=== PATIENT | female | born 1990 | race Caucasian/White ===

== ENCOUNTER 2021-02-17 16:06 | Emergency (ER) | payer OTHER ==
[~2021-02-17] VITALS: Ht 182.9 cm; Wt 81.8 kg
[2021-02-17 16:13] VITALS: BP 129/79
== END 2021-02-17 16:43 | disposition left against medical advice (07) ==
LOC: M ED 16:06
DX: Z53.21 Procedure and treatment not carried out due to patient leaving prior to being seen by health care provider (principal)

== ENCOUNTER 2021-02-26 21:23 | Emergency (ER) | payer OTHER ==
[~2021-02-26] VITALS: Ht 182.9 cm; Wt 80.7 kg
[2021-02-26 21:35] VITALS: BP 126/65
== END 2021-02-26 23:04 | disposition left against medical advice (07) ==
LOC: EDSEX 21:23 → M ED 21:23
DX: Z63.0 Problems in relationship with spouse or partner (principal); F41.9 Anxiety disorder, unspecified; F17.200 Nicotine dependence, unspecified, uncomplicated; F12.10 Cannabis abuse, uncomplicated; Z88.8 Allergy status to other drugs, medicaments and biological substances; Z88.6 Allergy status to analgesic agent; Z53.20 Procedure and treatment not carried out because of patient's decision for unspecified reasons

== ENCOUNTER 2021-07-25 14:17 | Emergency (ER) | payer OTHER ==
[~2021-07-25] VITALS: Ht 182.9 cm; Wt 81.8 kg
--- OUTSIDE RECORDS SUMMARY | 2021-07-25 14:24 | CCD ---
Author Author [facility] Organization [facility] Address Unknown Phone Unavailable Support Name Relationship Address Phone UN Next Of Kin Unknown Unavailable JAGDEEP RHODES Next Of Kin [address] [place] [address] JAGDEEP HUNTER Next Of Kin [address] [place] [address] VICTOR[place] [address] UE Next Of Kin Unknown Unavailable CHASITY [place] [address] Re-disclosure Warning The records that you are about to access may contain information from federally-assisted alcohol or drug abuse programs. If such information is present, then the following federally mandated warning applies: This information has been disclosed to you from records protected by federal confidentiality rules (42 CFR part 2). The federal rules prohibit you from making any further disclosure of this information unless further disclosure is expressly permitted by the written consent of the person to whom it pertains or as otherwise permitted by 42 CFR part 2. A general authorization for the release of medical or other information is NOT sufficient for this purpose. The Federal rules restrict any use of the information to criminally investigate or prosecute any alcohol or drug abuse patient.The records that you are about to access may contain highly sensitive health information, the redisclosure of which is protected by Article 27-F of the [facility] Public Health law. If you continue you may have access to information: Regarding HIV / AIDS; Provided by facilities licensed or operated by the [facility] Office of Mental Health; or Provided by the [facility] Office for People With Developmental Disabilities. If such information is present, then the following [facility] mandated warning applies: This information has been disclosed to you from confidential records which are protected by state law. State law prohibits you from making any further disclosure of this information without the specific written consent of the person to whom it pertains, or as otherwise permitted by law. Any unauthorized further disclosure in violation of state law may result in a fine or chcf sentence or both. A general authorization for the release of medical or other information is NOT sufficient authorization for further disc losure. Encounters Encounter Providers Location Date Indications Data Source(s ) Outpatient 02/17/2021 03:43:49 PM EDT [facility] ([facility]) Medications No Information Insurance Providers Payer name Policy type / Coverage type Policy ID Covered libertarian ID Covered libertarian's relationship to [place] Policy [place] Plan Information BENJAMIN [id number] SP [id number] SELF PAY ONLY [id number] SP [id number] BENJAMIN [id number] SP [id number] MEDICAID M [id number] S [id number] EMEDNY [id number] SP [id number] MEDICAID [id number] SP [id number] Problems, Conditions, and Diagnoses No Information Surgeries/Procedures No Information Results No Information Social History No Information
--- OUTSIDE RECORDS SUMMARY | 2021-07-25 15:17 | CCD ---
Author Author [facility] Organization [facility] Address Unknown Phone Unavailable Support Name Relationship Address Phone UN Next Of Kin Unknown Unavailable JAGDEEP RHODES Next Of Kin [address] [place] [address] JAGDEEP HUNTER Next Of Kin [address] [place] [address] VICTORINO [place] [address] UE Next Of Kin Unknown Unavailable CHASITY [place] [address] Re-disclosure Warning The records that you are [...] is protected by Article 27-F of the [facility] Public Health law. If you continue you may have access to information: Regarding HIV / AIDS; Provided by facilities licensed or operated by the [facility] Office of Mental Health; or Provided by the [facility] Office for People With Developmental Disabilities. If such information is present, then the following [facility] mandated warning applies: This information has been [...] law may result in a fine or shelter sentence or both. A general authorization for the release of medical or other information is NOT sufficient authorization for further disc losure. Encounters Encounter Providers Location Date Indications Data Source(s ) Outpatient 02/17/2021 03:43:49 PM EDT [facility] ([facility]) Medications No Information Insurance Providers Payer name Policy type / Coverage type Policy ID Covered alliance party ID Covered alliance party's relationship to [place] Policy [place] Plan Information BENJAMIN [id number] SP [id number] SELF PAY ONLY [id number] SP [id number] BENJAMIN [id number] SP [id number] MEDICAID M [id number] S [id number] EMEDNY [id number] SP [id number] MEDICAID [id number] SP [id number] Problems, Conditions, and Diagnoses No Information Surgeries/Procedures No Information Results No Information Social History No Information
[2021-07-25] MEDS ORDERED: BACT800T5 PO (15:43)
[2021-07-25 15:52] VITALS: BP 116/76
== END 2021-07-25 15:54 | disposition home or self-care (01) ==
LOC: M ED 14:17
DX: S30.861A Insect bite (nonvenomous) of abdominal wall, initial encounter (principal); S00.96XA Insect bite (nonvenomous) of unspecified part of head, initial encounter; S40.861A Insect bite (nonvenomous) of right upper arm, initial encounter; S40.862A Insect bite (nonvenomous) of left upper arm, initial encounter; W57.XXXA Bitten or stung by nonvenomous insect and other nonvenomous arthropods, initial encounter; F12.10 Cannabis abuse, uncomplicated; F17.200 Nicotine dependence, unspecified, uncomplicated; Y92.9 Unspecified place or not applicable; Y93.9 Activity, unspecified; Y99.9 Unspecified external cause status

== ENCOUNTER 2021-08-01 14:55 | Inpatient (IN) | payer OTHER ==
[~2021-08-01] VITALS: Ht 182.9 cm; Wt 78.0 kg
[~2021-08-01 14:55] MED LIST: BACT800T5 PO
--- OUTSIDE RECORDS SUMMARY | 2021-08-01 15:00 | CCD ---
Author Author [facility] Organization [facility] Address Unknown Phone Unavailable Care Team Providers Care Bundler Name Role Phone NO, PCP Unavailable Unavailable Annette JENSEN MD Unavailable Unavailable Annette JENSEN MD Unavailable Unavailable Annette JENSEN MD Unavailable Unavailable Annette JENSEN MD Unavailable Unavailable Annette JENSEN MD Unavailable Unavailable Annette JENSEN MD Unavailable Unavailable Annette JENSEN MD Unavailable Unavailable Annette JENSEN MD Unavailable Unavailable Annette JENSEN MD Unavailable Unavailable Annette JENSEN MD Unavailable Unavailable Annette JENSEN MD Unavailable Unavailable Annette JENSEN MD Unavailable Unavailable Annette JENSEN MD Unavailable Unavailable Annette JENSEN MD Unavailable Unavailable Annette JENSEN MD Unavailable Unavailable Annette JENSEN MD Unavailable Unavailable Annette JENSEN MD Unavailable Unavailable Annette JENSEN MD Unavailable Unavailable Annette JENSEN MD Unavailable Unavailable Annette JENSEN MD Unavailable Unavailable Annette JENSEN MD Unavailable Unavailable Annette JENSEN MD Unavailable Unavailable Annette JENSEN MD Unavailable Unavailable JENSEN, M RONY MD Unavailable Unavailable JENSEN, M RONY MD Unavailable Unavailable JENSEN, M RONY MD Unavailable Unavailable JENSEN, M RONY MD Unavailable Unavailable JENSEN, M RONY MD Unavailable Unavailable JENSEN, M RONY MD Unavailable Unavailable JENSEN, M RONY MD Unavailable Unavailable JENSEN, M RONY MD Unavailable Unavailable JENSEN, M RONY MD Unavailable Unavailable JENSEN, M RONY MD Unavailable Unavailable JENSEN, M RONY MD Unavailable Unavailable JENSEN, M RONY MD Unavailable Unavailable JENSEN, M RONY MD Unavailable Unavailable JENSEN, M RONY MD Unavailable Unavailable JENSEN, M RONY MD Unavailable Unavailable JENSEN, M RONY MD Unavailable Unavailable JENSEN, M RONY MD Unavailable Unavailable JENSEN, M RONY MD Unavailable Unavailable JENSEN, M RONY MD Unavailable Unavailable JENSEN, M RONY MD Unavailable Unavailable JENSEN, M RONY MD Unavailable Unavailable JENSEN, M RONY MD Unavailable Unavailable JENSEN, M RONY MD Unavailable Unavailable JENSEN, M RONY MD Unavailable Unavailable JENSEN, M RONY MD Unavailable Unavailable JENSEN, M RONY MD Unavailable Unavailable JENSEN, M RONY MD Unavailable Unavailable CHANLIECCO, C DOC MD Unavailable Unavailable CHANLIECCO, C DOC MD Unavailable Unavailable CHANLIECCO, C DOC MD Unavailable Unavailable CHANLIECCO, C DOC MD Unavailable Unavailable CHANLIECCO, C DOC MD Unavailable Unavailable CHANLIECCO, C DOC MD Unavailable Unavailable CHANLIECCO, C DOC MD Unavailable Unavailable CHANLIECCO, C DOC MD Unavailable Unavailable CHANLIECCO, C DOC MD Unavailable Unavailable CHANLIECCO, C DOC MD Unavailable Unavailable CHANLIECCO, C DOC MD Unavailable Unavailable Re-disclosure Warning The records that you are [...] is protected by Article 27-F of the [facility] Public Health law. If you continue you may have access to information: Regarding HIV / AIDS; Provided by facilities licensed or operated by the [facility] Office of Mental Health; or Provided by the [facility] Office for People With Developmental Disabilities. If such information is present, then the following [facility] mandated warning applies: This information has [...] law may result in a fine or mcfp sentence or both. A general authorization for the release of medical or other information is NOT sufficient authorization for further disc losure. Allergies and Adverse Reactions Type Description Substance Reaction Status Data Source(s ) No Known Drug Allergies No Known Drug Allergies [facility] Encounters Encounter Providers Location Date Indications Data Source(s ) Emergency Attender: DOC Macedo MDConsultant: RONY JENSEN MDConsultant: PCP NO 08/01/2021 08:01:00 AM EST - 08/01/2021 01:55:[address] [facility] Patient discharged. Outpatient 02/17/2021 03:43:49 PM EDT [facility] ([facility]) Medications Medication Brand Name Start Date Product Form Dose Route Admi nistrative Instructions Pharmacy Instructions Status Indications Reaction Description Data Source(s) 800-160 mg 07/25/2021 12:00:00 AM EST tablet 20 TAKE ONE TABLET BY MOUTH EVERY 12 HOURS TAKE ONE TABLET BY MOUTH EVERY 12 HOURS SOLD: 07/27/2021 [facility] Insurance Providers Payer name Policy type / Coverage type Policy ID Covered republican ID Covered republican's relationship to [place] Policy [place] Plan Information BENJAMIN [id number] SP [id number] 500 BENJAMIN [facility] [id number] 18 [id number] SELF PAY ONLY [id number] SP [id number] BENJAMIN [id number] SP [id number] MEDICAID M [id number] S [id number] EMEDNY [id number] SP [id number] MEDICAID [id number] SP [id number] Problems, Conditions, and Diagnoses No Information Surgeries/Procedures No Information Results ID Date Data Source [id number] 08/01/2021 12:16:[address] [facility] [address] [place] [address] PHONE: [phone] FAX: [phone] Name .................. : CARMELO Uriarte Acct Number.................. : [id number] ROOM. ................. : TR-07 Number ................... : [id number] Stay type ............. : E/R Discharge Date......... ... : Admit Date ......... : 08/01/21 Admit Phys .................... : [facility] Date of ....... : 1990 Family Phys ................... : JENSEN PAU Phone .................. : [phone] Age ................................ : 31 Film# .................. .:[id number] Sex ................................. : M Unsigned transcriptions are preliminary reports and do not represent a medical or legal document CHEST PORTABLE [id number] COMPLETE:08/01/21 08:30 13067 Elsa son(s): psych clearance PORTABLE CHEST SINGLE VIEW OBTAINED AT 9:17 AM HISTORY: Psych clearance, cold exposure COMPARISON: None. FINDINGS: Mediastinal and hilar structures are normal. Cardiac silhouette is unremarkable. Lungs are clear. No pulmonary edema. No pleural effusions or pneumothorax. IMPRESSION: No acute disease. Electronically Reviewed and Signed By Steven Ramey MD , 08/01/21 12:16, JWNesha Transcribe Initials: DEN , Transcribe Date: 08/01/21 09:44, Dictation Date: Copy for: 010 EMERGENCY SRV Copy for: EMERGENCY DEPT via modem Copy for: 710 MED REC Page 1 of 1 Name Value Range Interpretation Code Description Data Pily rce(s) Supporting Document(s) ID Date Data Source [id number] 08/01/2021 12:04:[address] [facility] NOT DETECTEDNOT DETECTED{ PROC EDURAL CONTROL VALID KIT LOT # _[id number] 08/01/21.1204.TAD. . . KIT EXP DATE _02.12.22 08/01/21.1204.TAD. . . NORMAL RANGE IS NOT DETECTEDThe COVID-19 assay is a rapid molecular in vitro diagnostic testutilizing an isothermal nucleic acid amplification technology for thequalitative detection of nucleic acid from the SARS-CoV-2 viral RNA in directnasal or nasopharyngeal swabs. Testing should be performed within the first 7days of the onset of symptoms.NEGATIVE RESULTS SHOULD BE TREATED PRESUMPTIVE AND, IF INCONSISTENT WITHCLINICAL SIGNS AND SYMPTOMS OR NECESSARY FOR PATIENT MANAGEMENT, SHOULD BETESTED WITH DIFFERENT AUTHORIZED OR CLEARED MOLECULAR TESTS. NEGATIVE RESULTSDO NOT PRECLUDE SARS-CoV-2 INFECTION AND SHOULD NOT BE USED THE SOLE BASISFOR PATIENT MANAGEMENT DECISIONS. Name Value Range Interpretation Code Description Data Pily rce(s) Supporting Document(s) ID Date Data Source [id number] 08/01/2021 11:30:[address] [facility] Name Value Range Interpretation Code Description Data Pily rce(s) Supporting Document(s) UA REFLEX TO UA CULTURE [facility] URINALYSIS SOURCE R [facility] COLOR yellow NORMAL: Yellow [facility] CLARITY hazy NORMAL: Clear [facility] Specific gravity of Urine by Test strip 1.025 1.001 - 1.030 [facility] pH 6 5 - 9 [facility] Glucose [Mass/volume] in Urine by Test strip NORM NORMAL: Negat [facility] Bilirubin.total [Presence] in Urine by Test strip NEG NORMAL: Negative [facility] Ketones [Presence] in Urine by Test strip 150 NORMAL: Negative [facility] Protein [Mass/volume] in Urine by Test strip 30 NORMAL: Negat [facility] Nitrite [Presence] in Urine by Test strip NEG NORMAL: Negative [facility] BLOOD NEG NORMAL: Negative [facility] Leukocyte esterase [Presence] in Urine by Test strip 25 CHAPO L: Negative [facility] Urobilinogen [Mass/volume] in Urine by Test strip 1 less nery n 1.0 mg/dL [facility] MICROSCOPIC See Below [facility] ital WBC 30 - 40 NORMAL: NONE SEEN A [facility] Erythrocytes [#/volume] in Urine by Test strip 1 - 3 NORMAL: NON E SEEN [facility] EPITHELIAL FEW NORMAL: NONE SEEN [facility] Bacteria [Presence] in Urine sediment by Light microscopy Tr pamela NORMAL: NONE SEEN [facility] Mucus [Presence] in Urine sediment by Light microscopy 3+ NOR MAL: NONE SEEN A [facility] ID Date Data Source [id number] 08/01/2021 09:48:00 AM EST [facility] Name Value Range Interpretation Code Description Data Pily rce(s) Supporting Document(s) DRUG SCREEN URINE [facility] URINE DRUG SCREEN Amphetamine [Presence] in Urine by Screen method PRESUMP POS CHAPO L: NEGATIVE [facility] BARBITURATES NEGATIVE NORMAL: NEGATIVE [facility] BENZO NEGATIVE NORMAL: NEGATIVE [facility] COCAINE NEGATIVE NORMAL: NEGATIVE [facility] Tetrahydrocannabinol [Presence] in Urine PRESUMP POS NORMAL: NEGATIVE [facility] OPIATES NEGATIVE NORMAL: NEGATIVE [facility] Phencyclidine [Presence] in Urine by Screen method NEGATIVE NOR MAL: NEGATIVE [facility] \BLDo\URINE DRUG SCR EEN INTERPRETATION\BLDx\ THE CUTOFFF LEVELS FOR DETECTION ARE FOLLOWS: AMPHETAMINES 1000 ng/ml BARBITUARATES 200 ng/ml BENZODIAZEPINES 100 ng/ml THC 50 ng/ml PHENCYCLIDINE 25 ng/ml OPIATES 300 ng/ml COCAINE 300 ng/ml ALL POSITIVES ARE CONSIDERED PRESUMPTIVE POSITIVE CONFIRMATION WILL BE PERFORMED AT PHYSICIAN REQUEST. ID Date Data Source [id number] 08/01/2021 10:04:[address] [facility] Name Value Range Interpretation Code Description Data Pily rce(s) Supporting Document(s) Thyrotropin [Units/volume] in Serum or Plasma by Detec tion limit <= 0.05 mIU/L 0.93 uIU/mL 0.47 - 5.01 [facility] ID Date Data Source [id number] 08/01/2021 10:00:[address] [facility] Name Value Range Interpretation Code Description Data Pily rce(s) Supporting Document(s) SALICYLATE <0.3 mg/dL 2.0 - 20.[address] [facility] pital ID Date Data Source [id number] 08/01/2021 10:00:[address] [facility] Name Value Range Interpretation Code Description Data Pily rce(s) Supporting Document(s) Creatine kinase [Enzymatic activity/volume] in Serum or Plasma 1 88 U/L 30 - 170 H [facility] ID Date Data Source [id number] 08/01/2021 10:00:[address] [facility] Name Value Range Interpretation Code Description Data Pily rce(s) Supporting Document(s) COMPREHENSIVE METABOLIC PANEL [facility] COMPREHENSIVE METABOLIC PANEL Sodium [Moles/volume] in Serum or Plasma 137 mEq/L 134 - 153 [facility] Potassium [Moles/volume] in Serum or Plasma 4.0 mEq/L 3.6 - 5.0 [facility] Chloride [Moles/volume] in Serum or Plasma 101 mEq/L 98 - 107 [facility] Carbon dioxide, total [Moles/volume] in Serum or Plasma 23 MEQ/L 22 - 30 [facility] Glucose [Mass/volume] in Serum or Plasma 70 MG/DL 70 - 99 [facility] BUN 10 MG/DL 7 - 21 [facility] Creatinine [Mass/volume] in Serum or Plasma 0.7 MG/DL 0.7 - 1.5 [facility] BUN/CREAT 14 8 - 27 [facility] al Protein [Mass/volume] in Serum or Plasma 6.7 G/DL 6.3 - 8.2 [facility] Albumin [Mass/volume] in Serum or Plasma 4.8 G/DL 3.9 - 5.0 [facility] Globulin [Mass/volume] in Serum by calculation 1.9 GM/DL 2.4 - 3.2 L [facility] A/G RATIO 2.5 0.8 - 2.0 H [facility] Calcium [Mass/volume] in Serum or Plasma 9.4 MG/DL 8.4 - 10.2 [facility] Bilirubin.total [Mass/volume] in Serum or Plasma 1.5 MG/DL 0.2 - 1.3 H [facility] Alkaline phosphatase [Enzymatic activity/volume] in Serum or Plasma 92 U/L 38 - 126 [facility] Aspartate aminotransferase [Enzymatic activity/volume] in Serum or Plasma 23 U/L 5 - 40 [facility] Alanine aminotransferase [Enzymatic activity/volume] in Seru m or Plasma 22 U/L 7 - 56 [facility] Anion gap 3 in Serum or Plasma 13.0 mmol/L 8.0 - 16.0 [facility] AGE 31 yrs [facility] NON-AA GFR >60 mL/min [facility] ital AFR AMER GFR >60 mL/min [facility] Male GFR In terprentation 20-49 yrs >60 mL/min Normal 50-59 yrs >56 mL/min Normal 60-69 yrs >49 mL/min Normal 70-79yrs >42 mL/min Normal 80 and above >35 mL/min Normal Female GFR Interpretation 20-39 yrs >60 mL/min Normal 40-49 yrs >58 mL/min Normal 50-59 yrs >51 mL/min Normal 60-69 yrs >45 mL/min Normal 70-79 yrs >39 mL/min Normal 80 and above >32 mL/min Normal ID Date Data Source [id number] 08/01/2021 09:53:00 AM EST [facility] Name Value Range Interpretation Code Description Data Pily rce(s) Supporting Document(s) Ethanol [Moles/volume] in Blood <10.0 MG/DL [facility] ALCOHOL % 0.01 % 0.00 - 0.01 [facility] *FOR MEDICAL PURPOSES ONLY * ID Date Data Source [id number] 08/01/2021 09:53:[address] [facility] Name Value Range Interpretation Code Description Data Pily rce(s) Supporting Document(s) Acetaminophen [Presence] in Urine <5.0 UG/ML 0.0 - 30.0 [facility] ID Date Data Source [id number] 08/01/2021 09:18:[address] [facility] Name Value Range Interpretation Code Description Data Pily rce(s) Supporting Document(s) CBC W/AUTOMATED DIFF [facility] COMPLETE BLOOD COUNT Leukocytes [#/volume] in Blood by Automated count 6.0 10^3/uL 4.2 - 1 1.0 [facility] Erythrocytes [#/volume] in Blood by Automated count 5.25 10^6/uL 4. 50 - 6.30 [facility] Hemoglobin [Mass/volume] in Blood 15.8 g/dL 14.0 - 16.0 [facility] Hematocrit [Volume Fraction] of Blood by Automated count 44.8 % 4 1.0 - 51.0 [facility] Erythrocyte mean corpuscular volume [Entitic volume] by Auto mated count 85.3 fL 80.0 - 94.0 [facility] Erythrocyte mean corpuscular hemoglobin [Entitic mass] by Automated count 30.1 pg 27.0 - 34.0 [facility] Erythrocyte mean corpuscular hemoglobin concentration [Mass/volume] by Automated count 35.3 g/dL 31.0 - 36.0 [facility] Erythrocyte distribution width [Ratio] by Automated count 12.7 % 11.5 - 14.8 [facility] Platelets [#/volume] in Blood by Automated count 229 10^3/uL 150 - 45 0 [facility] Platelet mean volume [Entitic volume] in Blood by Automated count 10.4 fL 7.4 - 10.4 [facility] Neutrophils/100 leukocytes in Blood by Automated count 57.9 % 37. 0 - 80.0 [facility] Lymphocytes/100 leukocytes in Blood by Manual count 27.2 % 25.0 - 40.0 [facility] Monocytes/100 leukocytes in Blood by Automated count 10.0 % 3.0 - 8.0 H [facility] Eosinophils/100 leukocytes in Blood by Automated count 3.8 % 0.0 - 7.0 [facility] Basophils/100 leukocytes in Blood by Automated count 0.8 % 0.0 - 2.0 [facility] %IG 0.3 % 0.0 - 0.0 H [facility] %NRBC 0.0 % 0.0 - 0.0 [facility] al Neutrophils [#/volume] in Blood by Automated count 3.46 10^3/uL 2.00 - 6.90 [facility] Lymphocytes [#/volume] in Blood by Automated count 1.63 10^3/uL 0.60 - 3.40 [facility] Monocytes [#/volume] in Blood by Automated count 0.60 10^3/uL 0.00 - 0.90 [facility] Eosinophils [#/volume] in Blood by Automated count 0.23 10^3/uL 0.00 - 0.70 [facility] Basophils [#/volume] in Blood by Automated count 0.05 10^3/uL 0.00 - 0.20 [facility] #IG 0.02 10^3/uL 0.00 - 0.10 [facility] #NRBC 0.00 10^3/uL 0.00 - 0.00 [facility] MANUAL DIFF NOT INDICATED [facility] RBC MORPH NOT INDICATED [facility] Procedure Social History No Information
[2021-08-01] MEDS ORDERED: LORazepam 1 MG TAB PO ONE (15:25)
--- OUTSIDE RECORDS SUMMARY | 2021-08-01 16:11 | CCD ---
Author Author [facility] Organization [facility] Address Unknown Phone Unavailable Care Team Providers Care Audit Clerk Name Role Phone NO, PCP Unavailable Unavailable Annette JENSEN MD Unavailable Unavailable Annette JENSEN MD Unavailable Unavailable Annette JENSEN MD Unavailable Unavailable Annette JENSEN MD Unavailable Unavailable Annette JENSEN MD Unavailable Unavailable Annette JENSEN MD Unavailable Unavailable Annette JENSEN MD Unavailable Unavailable Annette JENSEN MD Unavailable Unavailable Annette JENSEN MD Unavailable Unavailable Annette JENSNE MD Unavailable Unavailable Annette JENSEN MD Unavailable [...] is protected by Article 27-F of the [facility] Public Health law. If you continue you may have access to information: Regarding HIV / AIDS; Provided by facilities licensed or operated by the [facility] Office of Mental Health; or Provided by the [facility] Office for People With Developmental Disabilities. If such information is present, then the following [facility] mandated warning applies: This information has [...] law may result in a fine or long term sentence or both. A general authorization for the release of medical or other information is NOT sufficient authorization for further disc losure. Allergies and Adverse Reactions Type Description Substance Reaction Status Data Source(s ) No Known Drug Allergies No Known Drug Allergies [facility] Encounters Encounter Providers Location Date Indications Data Source(s ) Emergency Attender: DOC Macedo MDConsultant: RONY JENSEN MDConsultant: PCP NO 08/01/2021 08:01:00 AM EST - 08/01/2021 01:55:00 PM [facility] Patient discharged. Outpatient 02/17/2021 03:43:49 PM EDT [facility] ([facility]) Medications Medication Brand Name Start [...] to [place] Policy [place] Plan Information BENJAMIN [id number] SP [id number] [facility] [id number] 18 [id number] SELF PAY ONLY [id number] SP [id number] BENJAMIN [id number] SP [id number] MEDICAID M [id number] S [id number] EMEDNY [id number] SP [id number] MEDICAID [id number] SP [id number] Problems, Conditions, and Diagnoses No Information Surgeries/Procedures No Information Results ID Date Data Source [id number] 08/01/2021 12:16:00 PM EST [facility] [address] [place] [address] PHONE: [phone] FAX: [phone] Name .................. : CARMELO Uriarte Acct Number.................. : [id number] ROOM. ................. : TR-07 Number ................... : [id number] Stay type ............. : E/R Discharge Date......... ... : Admit Date ......... : 08/01/21 Admit Phys .................... : [facility] Date of ....... : 1990 Family Phys ................... : JENSEN PAU Phone .................. : [phone] Age ................................ : 31 Film# .................. .:[id number] Sex ................................. : M Unsigned transcriptions are preliminary reports and do not represent a medical or legal document CHEST PORTABLE [id number] COMPLETE:08/01/21 08:30 11911 Elsa son(s): psych clearance PORTABLE CHEST SINGLE [...] rce(s) Supporting Document(s) ID Date Data Source [id number] 08/01/2021 12:04:00 PM [facility] NOT DETECTEDNOT DETECTED{ PROC EDURAL CONTROL VALID [...] rce(s) Supporting Document(s) ID Date Data Source [id number] 08/01/2021 11:30:00 AM [facility] Name Value Range Interpretation Code Description Data Pily rce(s) Supporting Document(s) UA REFLEX TO UA CULTURE [facility] URINALYSIS SOURCE R [facility] COLOR yellow NORMAL: Yellow [facility] CLARITY hazy NORMAL: Clear [facility] Specific gravity of Urine by Test strip 1.025 1.001 - 1.030 [facility] pH 6 5 - 9 [facility] Glucose [Mass/volume] in Urine by Test strip NORM NORMAL: Negat [facility] Bilirubin.total [Presence] in Urine by Test strip NEG NORMAL: Negative [facility] Ketones [Presence] in Urine by Test strip 150 NORMAL: Negative [facility] Protein [Mass/volume] in Urine by Test strip 30 NORMAL: Negat [facility] Nitrite [Presence] in Urine by Test strip NEG NORMAL: Negative [facility] BLOOD NEG NORMAL: Negative [facility] Leukocyte esterase [Presence] in Urine by Test strip 25 CHAPO L: Negative [facility] Urobilinogen [Mass/volume] in Urine by Test strip 1 less nery n 1.0 mg/dL [facility] MICROSCOPIC See Below [facility] ital WBC 30 - 40 NORMAL: NONE SEEN [facility] Erythrocytes [#/volume] in Urine by Test strip 1 - 3 NORMAL: NON E SEEN [facility] EPITHELIAL FEW NORMAL: NONE SEEN [facility] Bacteria [Presence] in Urine sediment by Light microscopy Tr pamela NORMAL: NONE SEEN [facility] Mucus [Presence] in Urine sediment by Light microscopy 3+ NOR MAL: NONE SEEN A [facility] ID Date Data Source [id number] 08/01/2021 09:48:00 AM EST [facility] Name Value Range Interpretation Code Description Data Pily rce(s) Supporting Document(s) DRUG SCREEN URINE [facility] URINE DRUG SCREEN Amphetamine [Presence] in Urine by Screen method PRESUMP POS CHAPO L: NEGATIVE [facility] BARBITURATES NEGATIVE NORMAL: NEGATIVE [facility] BENZO NEGATIVE NORMAL: NEGATIVE [facility] COCAINE NEGATIVE NORMAL: NEGATIVE [facility] Tetrahydrocannabinol [Presence] in Urine PRESUMP POS NORMAL: NEGATIVE [facility] OPIATES NEGATIVE NORMAL: NEGATIVE [facility] Phencyclidine [Presence] in Urine by Screen method NEGATIVE NOR MAL: NEGATIVE [facility] \BLDo\URINE DRUG SCR EEN INTERPRETATION\BLDx\ THE CUTOFFF LEVELS FOR DETECTION ARE FOLLOWS: AMPHETAMINES 1000 ng/ml BARBITUARATES 200 ng/ml BENZODIAZEPINES 100 ng/ml THC 50 ng/ml PHENCYCLIDINE 25 ng/ml OPIATES 300 ng/ml COCAINE 300 ng/ml ALL POSITIVES ARE CONSIDERED PRESUMPTIVE POSITIVE CONFIRMATION WILL BE PERFORMED AT PHYSICIAN REQUEST. ID Date Data Source [id number] 08/01/2021 10:04:00 AM [facility] Name Value Range Interpretation Code Description Data Pily rce(s) Supporting Document(s) Thyrotropin [Units/volume] in Serum or Plasma by Detec tion limit <= 0.05 mIU/L 0.93 uIU/mL 0.47 - 5.01 [facility] ID Date Data Source [id number] 08/01/2021 10:00:00 AM [facility] Name Value Range Interpretation Code Description Data Pily rce(s) Supporting Document(s) SALICYLATE <0.3 mg/dL 2.0 - 20.0 L [facility] pital ID Date Data Source [id number] 08/01/2021 10:00:00 AM [facility] Name Value Range Interpretation Code Description Data Pily rce(s) Supporting Document(s) Creatine kinase [Enzymatic activity/volume] in Serum or Plasma 1 88 U/L 30 - 170 H [facility] ID Date Data Source [id number] 08/01/2021 10:00:00 AM [facility] Name Value Range Interpretation Code Description Data Pily rce(s) Supporting Document(s) COMPREHENSIVE METABOLIC PANEL [facility] COMPREHENSIVE METABOLIC PANEL Sodium [Moles/volume] in Serum or Plasma 137 mEq/L 134 - 153 [facility] Potassium [Moles/volume] in Serum or Plasma 4.0 mEq/L 3.6 - 5.0 [facility] Chloride [Moles/volume] in Serum or Plasma 101 mEq/L 98 - 107 [facility] Carbon dioxide, total [Moles/volume] in Serum or Plasma 23 MEQ/L 22 - 30 [facility] Glucose [Mass/volume] in Serum or Plasma 70 MG/DL 70 - 99 [facility] BUN 10 MG/DL 7 - 21 [facility] Creatinine [Mass/volume] in Serum or Plasma 0.7 MG/DL 0.7 - 1.5 [facility] BUN/CREAT 14 8 - 27 [facility] al Protein [Mass/volume] in Serum or Plasma 6.7 G/DL 6.3 - 8.2 [facility] Albumin [Mass/volume] in Serum or Plasma 4.8 G/DL 3.9 - 5.0 [facility] Globulin [Mass/volume] in Serum by calculation 1.9 GM/DL 2.4 - 3.2 L [facility] A/G RATIO 2.5 0.8 - 2.0 H [facility] Calcium [Mass/volume] in Serum or Plasma 9.4 MG/DL 8.4 - 10.2 [facility] Bilirubin.total [Mass/volume] in Serum or Plasma 1.5 MG/DL 0.2 - 1.3 H [facility] Alkaline phosphatase [Enzymatic activity/volume] in Serum or Plasma 92 U/L 38 - 126 [facility] Aspartate aminotransferase [Enzymatic activity/volume] in Serum or Plasma 23 U/L 5 - 40 [facility] Alanine aminotransferase [Enzymatic activity/volume] in Seru m or Plasma 22 U/L 7 - 56 [facility] Anion gap 3 in Serum or Plasma 13.0 mmol/L 8.0 - 16.0 [facility] AGE 31 yrs [facility] NON-AA GFR >60 mL/min [facility] ital AFR AMER GFR >60 mL/min [facility] Ho spital Male GFR In terprentation 20-49 [...] >32 mL/min Normal ID Date Data Source [id number] 08/01/2021 09:53:00 AM EST [facility] Name Value Range Interpretation Code Description Data Pily rce(s) Supporting Document(s) Ethanol [Moles/volume] in Blood <10.0 MG/DL [facility] ALCOHOL % 0.01 % 0.00 - 0.01 [facility]osp ital *FOR MEDICAL PURPOSES ONLY * ID Date Data Source [id number] 08/01/2021 09:53:00 AM [facility] Name Value Range Interpretation Code Description Data Pily rce(s) Supporting Document(s) Acetaminophen [Presence] in Urine <5.0 UG/ML 0.0 - 30.0 [facility] ID Date Data Source [id number] 08/01/2021 09:18:00 AM [facility] Name Value Range Interpretation Code Description Data Pily rce(s) Supporting Document(s) CBC W/AUTOMATED DIFF [facility] COMPLETE BLOOD COUNT Leukocytes [#/volume] in Blood by Automated count 6.0 10^3/uL 4.2 - 1 1.0 [facility] Erythrocytes [#/volume] in Blood by Automated count 5.25 10^6/uL 4. 50 - 6.30 [facility] Hemoglobin [Mass/volume] in Blood 15.8 g/dL 14.0 - 16.0 [facility] Hematocrit [Volume Fraction] of Blood by Automated count 44.8 % 4 1.0 - 51.0 [facility] Erythrocyte mean corpuscular volume [Entitic volume] by Auto mated count 85.3 fL 80.0 - 94.0 [facility] Erythrocyte mean corpuscular hemoglobin [Entitic mass] by Automated count 30.1 pg 27.0 - 34.0 [facility] Erythrocyte mean corpuscular hemoglobin concentration [Mass/volume] by Automated count 35.3 g/dL 31.0 - 36.0 [facility] Erythrocyte distribution width [Ratio] by Automated count 12.7 % 11.5 - 14.8 [facility] Platelets [#/volume] in Blood by Automated count 229 10^3/uL 150 - 45 0 [facility] Platelet mean volume [Entitic volume] in Blood by Automated count 10.4 fL 7.4 - 10.4 [facility] Neutrophils/100 leukocytes in Blood by Automated count 57.9 % 37. 0 - 80.0 [facility] Lymphocytes/100 leukocytes in Blood by Manual count 27.2 % 25.0 - 40.0 [facility] Monocytes/100 leukocytes in Blood by Automated count 10.0 % 3.0 - 8.0 H [facility] Eosinophils/100 leukocytes in Blood by Automated count 3.8 % 0.0 - 7.0 [facility] Basophils/100 leukocytes in Blood by Automated count 0.8 % 0.0 - 2.0 [facility] %IG 0.3 % 0.0 - 0.0 H [facility] Hospit al %NRBC 0.0 % 0.0 - 0.0 [facility] al Neutrophils [#/volume] in Blood by Automated count 3.46 10^3/uL 2.00 - 6.90 [facility] Lymphocytes [#/volume] in Blood by Automated count 1.63 10^3/uL 0.60 - 3.40 [facility] Monocytes [#/volume] in Blood by Automated count 0.60 10^3/uL 0.00 - 0.90 [facility] Eosinophils [#/volume] in Blood by Automated count 0.23 10^3/uL 0.00 - 0.70 [facility] Basophils [#/volume] in Blood by Automated count 0.05 10^3/uL 0.00 - 0.20 [facility] #IG 0.02 10^3/uL 0.00 - 0.10 [facility] #NRBC 0.00 10^3/uL 0.00 - 0.00 [facility] MANUAL DIFF NOT INDICATED [facility] RBC MORPH NOT INDICATED [facility] Procedure Social History No Information
[2021-08-01] MEDS ORDERED: HOME MED LIST COMPLETE! XX SCH (17:40)
[2021-08-01] MEDS ORDERED: MAALOX 30 ML SUSP *UDC PO PRN (17:45)
[2021-08-01] MEDS ORDERED: MOM 30ML SUSPENSION UDC PO PRN (17:45)
[2021-08-01] MEDS ORDERED: traZODone 50 MG TAB PO PRN (17:45)
[2021-08-01 23:09] VITALS: BP 106/68
[2021-08-02 06:45] VITALS: BP 109/63
[2021-08-02] MEDS: OLANZapine ORAL DISINTEGRATING TAB 5MG PO PRN (08:32)
[2021-08-02] MEDS: NICOTINE 21MG/24HR 1 EA TRANSDERMAL TD SCH (09:00)
--- NOTE | 2021-08-02 12:27 | HPEPDOC ---
[facility] Medical History & Physical Date of Admission Aug 02, 2021 Date of Service: Aug 02, 2021 History and Physical CHIEF COMPLAINT: "Found asleep in a ditch" HISTORY OF PRESENT ILLNESS: 31-year-old male with a past medical history of paranoid schizophrenia, posttraumatic stress disorder, anxiety/depression, and herniated disc in the lumbar region presented to the emergency room department after he was found laying in a ditch. He is unaware who brought him to the emergency room department. He reports getting into an argument with his then having a " episode" in order to calm self down he went out for a walk and fell asleep in a ditch. He describes the episode of hearing voices as well as seeing people, however he is unable to differentiate whether it is in his head or physically present. He denied having homicidal and suicidal ideations at this time. He was asked interested in being evaluated by the psychiatry team soon as he wanted to have resolution to these " episodes". He denied headaches, blurry vision, chest pain, shortness of breath, abdominal pain, nausea, vomiting, problems with urination or bowel movements. PAST MEDICAL HISTORY: As above. PAST SURGICAL HISTORY: None reported SOCIAL HISTORY: Smokes half pack a day. He reported his last use of Abida and meth was 3 days ago. He denies drinking FAMILY HISTORY: Denied family history ALLERGIES: Please see below. REVIEW OF SYSTEMS: 10 point review of system was negative except for what is noted in the HPI HOME MEDICATIONS: Please see below. PHYSICAL EXAMINATION: VITAL SIGNS: Please see below General: Lying in bed, no acute distress Head/Neck/Throat: Trachea midline, mucous membranes moist Eyes: Sclera anicteric, PERRLA Thorax: Normal respiratory effort on room air, lungs clear to auscultation bilaterally, no wheezes/rales/rhonchi Cardiovascular: Normal rate, regular rhythm, normal S1, S2; no S3, S4, rubs/gallops/murmurs Abdomen: Bowel sounds present, soft/nontender/nondistended Genitourinary: No CVA tenderness, no Land in place Musculoskeletal: Moving all extremities, no edema Skin: Warm, dry. Scratch marion throughout his body, with skin picking appreciated Neurologic: AAOx3, speech fluent and goal-directed, no focal deficits, grossly intact LABORATORY DATA: See below. IMAGING: No new imaging at this time MICROBIOLOGY: Please see below. ASSESSMENT/PLAN: #Paranoid schizophrenia vs substance-induced psychosis -Patient reports being off his psychiatric medication due to insurance reasons. Will defer to psychiatry team for appropriate antipsychotics to be resumed. #Anxiety/depression -Defer to psychiatry for appropriate mood stabilizers #Nicotine abuse -Nicotine patch #DVT prophylaxis -Encourage ambulation At the time of this evaluation blood work was pending. History and physical examination was done in the presence of a assistant hvac mechanic. Vital Signs Vital Signs Date Time Temp Pulse Resp B/P (MAP) Pulse Ox O2 Delivery O2 Flow Rate FiO2 08/02/21 06:45 99.3 85 18 109/63 (78) 98 08/01/21 23:09 Room Air Home Medications No Active Prescriptions or Reported Meds Allergies Coded Allergies: cephalexin (Verified Allergy, Severe, throat swelling, 02/17/21) tramadol (Verified Allergy, Severe, throat swelling, 02/17/21) acetaminophen (Verified Adverse Reaction, Intermediate, upset stomach, 02/17/21) A-FIB/CHADSVASC A-FIB History Current/History of A-Fib/PAF?: No SANIYA CANNON M.D. Aug 02, 2021 12:27
[2021-08-02 13:09] LABS: HEMATOCRIT 44.2 % (42.0-52.0); HEMOGLOBIN 15.1 g/dl (13.5-17.5); MEAN CORPUSCULAR HEMOGLOBIN 29.8 pg (27.0-33.0); MEAN CORPUSCULAR HGB CONC 34.2 g/dl (32.0-36.5); MEAN CORPUSCULAR VOLUME 87.4 fl (80.0-96.0); PLATELET COUNT, AUTOMATED 225 10^3/uL (150-450); RED BLOOD COUNT 5.06 10^6/uL (4.30-6.10); WHITE BLOOD COUNT 4.8 10^3/uL (4.0-10.0)
[2021-08-02 13:39] LABS: BLOOD UREA NITROGEN 12 MG/DL (7-18); CALCIUM LEVEL 8.9 MG/DL (8.5-10.1); CARBON DIOXIDE LEVEL 28 MEQ/L (21-32); CHLORIDE LEVEL 107 MEQ/L (98-107); CREATININE FOR GFR 0.88 MG/DL (0.70-1.30); GLOMERULAR FILTRATION RATE > 60.0 (>60); GLUCOSE, FASTING 96 MG/DL (70-100); POTASSIUM SERUM 4.6 MEQ/L (3.5-5.1); SODIUM LEVEL 140 MEQ/L (136-145)
--- NOTE | 2021-08-02 14:13 | MHHPE ---
[facility] HISTORY AND PHYSICAL DATE OF ADMISSION: 08/01/2021 VITAL SIGNS: Blood pressure 109/63, pulse 85, temperature 99.3. I am gathering historical information via video. He is in the inpatient psychiatry unit in the presence of staff. I am at home and I will be seeing him later today at the unit itself in hospital. CHIEF COMPLAINT: Says feels paranoid. SUBJECTIVE: He is 31 years old. He is . Says he and his have been together for the better part of this year. She has two children who live with them. He has two children who do not live with him, one is in [place], unclear where the other one is. He hopes to go to [place] later this week for a couple of days to see his daughter there. Says his will accompany him. Has not seen his daughter for quite a while. He was brought to the hospital from [place], had ended up in [place] after he was apparently found in a ditch. This was after he and his had an argument and he had left the house. Was found to be paranoid, indicated was hearing voices, seeing images, though somewhat vague on this. Does say has had paranoia, and he uses the word, off and on for the last two years and that he has seen images. Also has heard voices. Vague on their nature. Says used "Abida" and methamphetamines about three days ago. Says had not used them for more than a month. Implies he uses them with fair regularity, but did not give any specifics. Does say that he hears the voices even when not using, sometimes for as long as a month or so, though acknowledges that generally tends to use these drugs. It should be noted not a very reliable historian. Says sleep has been difficult at times, has had trouble staying asleep. Denies any suicidal thoughts or intents. PAST PSYCHIATRIC HISTORY: Says has seen therapists and psychiatrists early on in his life, but again, somewhat unclear. Does say he was here last year, though I cannot trace the records. Says he was here for a few days, admitted inpatient. Says has not taken any medicines with any regularity, including as an outpatient, but that he has made an appointment with [facility] for some time this coming week. Says feels better today, as he has spoken with his and that she is "going to give me another chance." These are his words. Says feels relieved with that. SUBSTANCE ABUSE HISTORY: As indicated above. He has a history of using methamphetamines. Denies if he has received any formal treatment for that. SOCIAL HISTORY: Mostly unclear. Says graduated high school and that he was essentially raised in [place], [place], has been here for a while. Indicates required some assistance in high school. Has two children. He has not seen them in a while. Plans to see his daughter in [place] later this week, around [place]. He and his have been together for the past several months. They live together. MENTAL STATUS EXAMINATION: Somewhat unkempt, guarded, or disinterested. Displays poverty of speech. No agitation. No psychomotor retardation. Affect restricted in range. Denies any suicidal thoughts or intents. No homicidal ideas or intents. At present does not appear to be internally preoccupied. No delusional ideations elicited. Cognition grossly intact, though he did have trouble with five digit spans backwards. Could do three digit spans backwards, however. Intellect average at best. Judgment and insight are compromised. ASSESSMENT: 1. Amphetamine-induced psychotic disorder. 2. Rule out schizophrenia. 3. Rule out schizoaffective disorder. 4. Amphetamine use disorder. 5. Marital difficulties. 6. Limited supports. 7. Possible nonadherence to treatment recommendations. PLAN: He is admitted to the inpatient psychiatry unit, placed on relevant precautions. We will look at obtaining collateral information. He will receive a medicine consultation, if indicated. Given the above, I would suggest that he is started empirically on Abilify 2 mg at night to be titrated and that he should be on an antipsychotic if, after further inquiries and assessment, it is deemed that he has a primary psychotic disorder. Would suggest his using Zydis Zyprexa in the short term to help with anxiety and agitation. Further recommendations will be made depending on the clinical picture. He will be seen by the assigned team tomorrow. The assessment took 35 minutes.
[2021-08-02 18:52] VITALS: BP 117/64
[2021-08-02] MEDS ORDERED: ARIPiprazole 2 MG TAB PO SCH (21:00)
[2021-08-02] MEDS: busPIRone 5 MG TAB PO SCH (23:28)
[2021-08-03 06:40] VITALS: BP 132/72
[2021-08-03] MEDS: busPIRone 5 MG TAB PO SCH (08:45)
[2021-08-03] MEDS: NICOTINE 21MG/24HR 1 EA TRANSDERMAL TD SCH (08:45)
[2021-08-03] MEDS ORDERED: FOLIC ACID 1 MG TAB PO SCH (09:00)
[2021-08-03] MEDS ORDERED: THIAMINE 100 MG TAB PO SCH (09:00)
--- NOTE | 2021-08-03 09:54 | MHIPNPDOC ---
[facility] Progress Note Progress Note DATE OF SERVICE: 08/03/21 HISTORY: Patient transferred from [facility], was found in a ditch after argument with , was hearing voices "It's my schizo paranoia", hx night terrors, anx, depression, hx methamphetamine use, states stopped using a couple days before admission. States has not had an episode in a couple months, states when clean from drugs sometimes hears voices "laughter in the background and whispering", also sees shadows, reports symptoms started in last 5 years, my paranoia/trust issues has gotten worse with people, hx PTSD since childhood, was planning to see daughter in [place] tomorrow. Denies SI, HI, voices. VITAL SIGNS: See below. NEW TEST RESULTS: see below CURRENT MEDICATIONS: See below. MENTAL STATUS EXAMINATION: Patient is a -year old male, who is . Speech: Is . Language skills are . Thought processes including: . Thought content: . Abstract reasoning, and computation: . Description of associations: . Description of abnormal or psychotic thoughts: . Judgment: . Insight: [very limited, good, fair. poor]. Orientation: . Recent and remote memory: . Attention span and concentration: . Language: . Fund of knowledge: . Mood: . Affect: . DIAGNOSES: 1. Unspecified schizophrenia and other psychotic disorder 2. Substance induced psychotic disorder 3. Methamphetamine use disorder, moderate 4. Tobacco use disorder 5. Cannabis use disorder ASSESSMENT: MANAGEMENT PLAN: . TIME SPENT: minutes. Vital Signs Vital Signs Date Time Temp Pulse Resp B/P (MAP) Pulse Ox O2 Delivery O2 Flow Rate FiO2 08/03/21 06:40 98.7 83 16 132/72 (92) 97 Room Air Laboratory Data [facility] Laboratory Tests 2 08/02/21 12:48: Nucleated Red Blood Cells % (auto) 0.0, Anion Gap 5L, Glomerular Filtration Rate > 60.0, Calcium Level 8.9 CBC/BMP Laboratory Tests 08/02/21 12:48 Current Medications Current Medications Medications (Trade) Dose Ordered Sig/Winifred Route PRN Reason Start Time Stop Time Status Last Admin Dose Admin Al Hydrox/Mg Hydrox/Simethicone (Mylanta) 30 ml Q4HP PRN PO HEARTBURN/INDIGESTION 08/01/21 17:45 Aripiprazole (AbiLIFY) 2 mg QHS PO 08/02/21 21:00 08/02/21 21:47 Buspirone HCl (Buspar) 5 mg BID PO 08/02/21 21:00 08/03/21 08:45 Folic Acid (Folic Acid) 1 mg DAILY PO 08/03/21 09:00 08/02/21 16:01 DC Home Med (Home Med List Complete!) ASDIRECTED XX 08/01/21 17:40 08/01/21 18:03 DC Magnesium Hydroxide (Milk Of Magnesia) 30 ml DAILYPRN PRN PO CONSTIPATION 08/01/21 17:45 Nicotine (Nicoderm Cq 21mg) 1 patch DAILY TD 08/02/21 09:00 08/03/21 08:45 Olanzapine (ZyPREXA ZYDIS) 5 mg Q6HP PRN PO ANXIETY/AGITATION 08/01/21 17:45 08/02/21 08:32 Thiamine HCl (Thiamine HCl) 100 mg DAILY PO 08/03/21 09:00 08/02/21 16:02 DC Trazodone HCl (Desyrel) 50 mg QHSP PRN PO INSOMNIA 08/01/21 17:45 Allergies Coded Allergies: cephalexin (Verified Allergy, Severe, throat swelling, 02/17/21) tramadol (Verified Allergy, Severe, throat swelling, 02/17/21) acetaminophen (Verified Adverse Reaction, Intermediate, upset stomach, 02/17/21) MURALI GIORDANO MD Aug 03, 2021 09:54
[2021-08-03] MEDS: OLANZapine ORAL DISINTEGRATING TAB 5MG PO PRN (10:25)
[2021-08-03] MEDS ORDERED: ABIL1TAB13 PO (11:09)
[2021-08-03] MEDS ORDERED: BUSP5TA PO (11:09)
[2021-08-03] MEDS ORDERED: NICO21PAT TD (11:09)
[2021-08-03] MEDS ORDERED: OLAN5ZYD PO (11:09)
--- NOTE | 2021-08-03 11:44 | MHDSPDOC ---
[facility] Discharge Summary Discharge Summary DATE OF ADMISSION: Aug 01, 2021 at 17:44 DATE OF DISCHARGE: August 03, 2021 Discharge diagnoses: 1. Unspecified schizophrenia and other psychotic disorder 2. Substance induced psychotic disorder 3. Methamphetamine use disorder, moderate 4. Tobacco use disorder 5. Cannabis use disorder Reason for admission: Patient transferred from [facility], was found in a ditch after argument with , per collateral from patient's Pauline Hernandez has history of schizophrenia and was lying in ditch to reportedly "take a nap", was hearing voices "It's my schizo paranoia", hx night terrors, anx, depression, hx methamphetamine use, states stopped using a couple days before admission. States has not had an episode in a couple months, states when clean from drugs sometimes hears voices "laughter in the background and whispering", also sees shadows, reports symptoms started in last 5 years, my paranoia/trust issues has gotten worse with people, hx PTSD since childhood, was planning to see daughter in [place] tomorrow. Denies SI, HI, voices. Vital signs: See below Consultants involved: See medical H&P by hospitalist Treatment and progress on the unit: Patient was admitted to the [facility] on a 9.39 legal status and was afforded the following treatment modalities: 1. Individual therapy 2. Group therapy 3. Medication management 4. Milieu therapy 5. Safe environment Hospital course: Patient was admitted to the [facility] on a 9.39 legal status. Was medically cleared prior to coming up to the [facility]. Patient was started on Abilify 2 mg nightly, BuSpar 5 twice daily, and had received olanzapine Zydis 5 mg p.o. daily. Patient reports good response to medications and agreed to continue on the medications. Had reported using methamphetamine 2 days prior to admission, and since starting medications and not using drugs is no longer hearing voices, no longer paranoid, no longer concrete and organized on i nterview with good mood. Patient found medications beneficial and tolerated them well without side effects. Denies mood anxiety and intrusive thoughts which improved with treatment. Patient attended groups daily during stay. Patient symptoms improved with treatment. On day of discharge patient denied depression, anxiety, insomnia, suicidal or homicidal ideations intent or plan, hallucinations, delusions. Patient was discharged home with follow-up. Patient felt safe for discharge. Was offered continued stay involuntary admission but refused. Discharge assessment: On today's interview patient is alert and oriented, dressed appropriately. Hygiene and grooming is well-kept. Smiles on approach and is pleasant and engaged on interview. Denies depression and anxiety. Denies suicidal homicidal ideation, intent or planning. Denies and is not observed with theresa or psychotic symptoms of delusions, hallucinations, bizarre thinking, obsessions, paranoia, ruminations, illogical thoughts, flight of ideas or having poor insight or judgment. Patient has normal mentation, declines further hospitalization of voluntary status and meets criteria for discharge today, patient encouraged to return the hospital if symptoms worsen or change and encouraged to call unit if they feel they need provider's questions to be answered or help with medications or care. Patient wants to meet family in [place], has children down there and daughter stays with his mother. This was confirmed with Pauline, patient's , per collateral patient doing better, ready to come home, reports doing okay medications without side effects, ready to have him home. Mental status: Patient is a 31-year old male, who is in no acute distress, Speech is normal rate rhythm and volume Language skills are good Thought processes including: Logical, goal directed Thought content: Denies suicidal ideation, intent or plan. Denies homicidal ideation, intent or plan. Abstract reasoning, and computation: Fair Description of associations: Good Description of abnormal or psychotic thoughts: Denies, not observed Judgment: good Insight: good Orientation to x4 Recent and remote memory: intact Attention span and concentration: normal Language: [place] Fund of knowledge: Below average based on interview Mood: "I'm totally fine" Affect: Euthymic, mildly constricted, appropriate Medications on discharge: see medication reconciliation: CSSRS on discharge: Wish to be : No nonspecific active suicidal thoughts: No lifetime attempts: Per chart review suicide attempt couple years ago, felt people were after him and going to kill him interrupted attempts: 0 aborted attempts: 0 preparatory acts or behavior: None Taking into consideration safety state, status, safety plan, protective factors, modifiable, non-modifiable risk factors patient is at low risk on discharge for suicide according to [place] suicide evaluation. PLAN/FOLLOWUP ARRANGEMENTS: Follow Up Care Education Label * Medical * Additional information PATIENT DECLINED MEDICAL FOLLOW UP APPOINTMENTS Follow Up Care Education Label * Mental Health Appt 1 * Mental Health [facility] * Established With This Provider Yes * Therapist DANYELL * Date Aug 04, 2021 * Time 15:00 * Address of Clinic or Practice [address] [place] [address] * * Additional information APPOINTMENT IS IN PERSON. The amount of time spent in the coordination of care for this patient was approximately 35 minutes. ETOH/Disorder Med Rx ETOH/DRUG DISORDER RX: Offrd @ d/c & pt refused Vital Signs/I&Os Vital Signs Date Time Temp Pulse Resp B/P (MAP) Pulse Ox O2 Delivery O2 Flow Rate FiO2 08/03/21 06:40 98.7 83 16 132/72 (92) 97 Room Air Laboratory Data Labs 24H Laboratory Tests 2 08/02/21 12:48: Nucleated Red Blood Cells % (auto) 0.0, Anion Gap 5L, Glomerular Filtration Rate > 60.0, Calcium Level 8.9 CBC/BMP Laboratory Tests 08/02/21 12:48 Medications Scheduled Aripiprazole (Abilify) 2 Mg Tablet, 2 MG PO QHS for mood, #7 Buspirone HCl (Buspirone HCl) 5 Mg Tablet, 5 MG PO BID for anxiety, #14 Nicotine (Nicotine Patch) 21 Mg Patch.td24, 1 PATCH TD DAILY for nicotine cravings, #7 Olanzapine (Olanzapine Odt) 5 Mg Tab.rapdis, 1 TAB PO QPM for psychosis for 30 Days, #30 Allergies Coded Allergies: cephalexin (Verified Allergy, Severe, throat swelling, 02/17/21) tramadol (Verified Allergy, Severe, throat swelling, 02/17/21) acetaminophen (Verified Adverse Reaction, Intermediate, upset stomach, 02/17/21) MURALI GIORDANO MD Aug 03, 2021 11:44
== END 2021-08-03 13:51 | disposition home or self-care (01) | DRG 750 ==
LOC: M ED 14:55 → M ED INP 17:44 → M PSY 21:04
PROVIDERS: ADMIT Student in an Organized Health Care Education/Training Program; ATTEND Student in an Organized Health Care Education/Training Program
DX: F20.9 Schizophrenia, unspecified (principal); Z91.14 Patient's other noncompliance with medication regimen; F17.200 Nicotine dependence, unspecified, uncomplicated; F12.90 Cannabis use, unspecified, uncomplicated; F15.90 Other stimulant use, unspecified, uncomplicated; Z79.899 Other long term (current) drug therapy; Z88.8 Allergy status to other drugs, medicaments and biological substances; F43.10 Post-traumatic stress disorder, unspecified; M51.26 Other intervertebral disc displacement, lumbar region